=== PATIENT | female | born 1955 | race Caucasian/White ===

== ENCOUNTER 2018-10-30 09:29 | Day surgery (SDC) | payer BC ==
--- NOTE | 2018-10-30 06:59 | History and Physical - Ferro ---
CHIEF COMPLAINT/HISTORY OF CHIEF COMPLAINT: This patient presents with a history of an intractable post lumbar laminectomy radiculopathy. Due to the failure of all therapy, a spinal cord stimulator trial was conducted on with 75+% pain control. Due to the failure of therapy and the success of the trial, the patient presents for implantation of a permanent system. PAST MEDICAL HISTORY: Hypertension. PAST SURGICAL HISTORY: Lumbar spinal surgery, gallbladder, D&C, and foot surgery. MEDICATIONS ON ADMISSION: List to be provided. ALLERGIES: SULFA, PENICILLIN, AND LISINOPRIL. FAMILY/PSYCHOSOCIAL HISTORY: Social history - Smoker, social alcohol, and caffeine. Family history - Diabetes, hypertension, and cancer. SYSTEMS REVIEW: The patient is appropriate in no acute distress. The remainder of the systems review is positive for thyroid disease, cataracts, blood pressure , renal disease, and degenerative arthritis. PHYSICAL EXAMINATION: Height is 5'6", no weight. Vital signs are not available. HEENT: Within normal limits. LUNGS: Clear. HEART: Rapid and regular. ABDOMEN: Nontender. MUSCULOSKELETAL: Examination of the musculoskeletal system shows diffuse tenderness at the lumbar spine. Range of motion does produce pain throughout the low back and the adjacent laminectomy scar. A right lower extremity component across the front and back surface. There is motor and sensory abnormalities to the right lower extremity. Ambulation - No assistive device utilized. NEUROLOGIC: Cranial nerves are intact. IMPRESSION: POST LUMBAR LAMINECTOMY SYNDROME, ICD-10 CODE M96.1 WITH RADICULOPATHY, ICD-10 CODE M54.16 AND M54.17. PLAN: The patient is here for implantation of a permanent spinal cord stimulatory based upon a successful trial and the failure of therapy. The procedure will be considered outpatient although an overnight stay will be evaluated. JOB NUMBER: [id number] [facility]
[~2018-10-30 09:29] MED LIST: ACETAMINOPHEN 1,000 MG/100 ML BTL IV ONE; CLINDAMYCIN 600MG/50ML PREMIX 600 MG/50 ML BAG IVPB ONE; FAMOTIDINE 20MG TABLET PO ONE; MECLIZINE 25 MG TABLET PO ONE; METOCLOPRAMIDE 10 MG TABLET PO ONE
[2018-10-30] MEDS ORDERED: PROPOFOL 10 MG/ML VIAL IV ONE (09:30)
[2018-10-30] MEDS ORDERED: LIDOCAINE 2% MDV (20MG/ML) 20ML VIAL IV ONE (09:30)
[2018-10-30] MEDS ORDERED: BUPIVACAINE 0.5% W/EPI MPF 30 ML VIAL IVP ONE (09:30)
[2018-10-30] MEDS ORDERED: HYDROMORPHONE HCL 2 MG/ML VIAL IV ONE (09:30)
[2018-10-30] MEDS ORDERED: KETAMINE HCL 100MG/1ML VIAL INJ ONE (09:30)
[2018-10-30] MEDS ORDERED: FENTANYL PF 100MCG/2ML VIAL IV ONE (09:30)
[2018-10-30] MEDS ORDERED: LIDOCAINE 1% W/EPI 1:200,000 MPF 30ML SQ ONE (09:30)
[2018-10-30] MEDS ORDERED: Clindamycin 600mg vial 150 MG/ML VIAL IVPB ONE (09:30)
[2018-10-30] MEDS ORDERED: MIDAZOLAM HCL 2MG/2ML VIAL IV ONE (09:30)
--- NOTE | 2018-10-31 18:17 | Operative Note - Ferro ---
DATE OF SURGERY: 10/30/18 PREOPERATIVE DIAGNOSES: POST LUMBAR LAMINECTOMY SYNDROME, ICD-10 CODE = M96.1 WITH RADICULOPATHY, ICD- 10 CODE = M54.16 AND M54.17. OPERATION: 1. FLUOROSCOPICALLY-GUIDED EPIDURAL ACCESS T12/L1, PLACEMENT OF SPINAL CORD STIMULATOR LEAD 1, A [employer] 16 WITH 6 ELECTRODES POSITIONED LEFT T7. 2. 3. FLUOROSCOPICALLY-GUIDED EPIDURAL ACCESS LEFT T11/12, PLACEMENT OF SPINAL CORD STIMULATOR LEAD 2, A [employer] 16 WITH 6 ELECTRODES POSITIONED RIGHT T7. 3. COMPLEX PROGRAMMING LEAD 1 OVER 20 MINUTES FOLLOWED BY COMPLEX PROGRAMMING OF LEAD 2 OVER 20 MINUTES. 4. INCISION, SUBCUTANEOUS DISSECTION, AND ANCHORING OF LEAD 1 AND LEAD 2 TO SUPRASPINOUS FASCIA USING A [employer] LOCKING ANCHOR. 5. INCISION, SUBCUTANEOUS DISSECTION, AND CREATION OF SUBCUTANEOUS POUCH AT RIGHT POSTERIOR GLUTEAL MARGIN FOR PLACEMENT OF GENERATOR IDENTIFIED [employer] PROGRAMMABLE RECHARGEABLE WAVEWRITER. 6. TUNNELING LEAD POUCHES. PLACEMENT OF EXTERNAL PORTION LEAD 1 AND LEAD 2 INTO GENERATOR POUCH. EACH LEAD INTERFACED TO GENERATOR. 7. PLACEMENT OF GENERATOR INTO POUCH. PLACEMENT OF LEADS INTO POUCH. CLOSURE OF INCISIONS USING STRATAFIX SUTURE 2-0 FASCIA, 3-0 SKIN. DERMABOND CLOSURE. 8. COMPLEX RECOVERY ROOM PROGRAMMING INTERNAL GENERATOR HOME USE, TWO STIMULATORS, 20 MINUTES. SURGEON: FABY HERBERT D.O. ANESTHESIA: LOCAL SEDATION. ANESTHESIA PROVIDER: SHAYLA SANTOS CRNA. INDICATION: This patient with a history of intractable post lumbar laminectomy radiculopathy. Due to the failure of therapy, a trial spinal cord stimulation was conducted with 75 to 85% pain control. Due to the failure of the other therapies and the success of the trial, she presents for implantation of a permanent system by her choice. PROCEDURE: Intravenous line, vital sign monitoring, IV sedation. Prepped and draped sterile technique. The epidural interspace left of the midline at T12/L1 and 11/12 were marked and infiltrated. Using curved axis Epimed needles with [id number], the space was accessed. At 12/1, spinal cord stimulator lead 1, a [employer] Infinion 16 with 6 electrodes was positioned left at T7. With the epidural access at 11/12, spinal cord stimulator lead 2, also a [employer] Infinion 16 with 6 electrodes, positioned right at T7. Complex programming of lead 1 over 20 minutes followed by complex programming of lead 2 over 20 minutes resulted in complete patterns of stimulation across the back and into the legs; patient indicating we had all of the areas of the pain. She was given the option to implant, continue to program, or remove the system; she opted to implant. Questions were repeated with the same response. The skin above and below both needles was infiltrated, incision made, and subcutaneous dissection was conducted to the supraspinous fascia. The needles were removed then each lead was anchored to the supraspinous fascia with a [employer] and nonabsorbable suture. At the right posterior gluteal margin, a site picked by the patient for the generator, skin infiltrated, incision made, and subcutaneous dissection was conducted to form a pouch of suitable size and depth for the generator, a [employer] Wave[employer] Programmable Rechargeable. A tunneling tool was used to carry the leads into the generator pouch and then each lead was interfaced to the generator. Antibiotic irrigation and Bovie for hemostasis. The generator was placed into the pouch and then secured with nonabsorbable suture. The leads were placed into their own pouch then both incisions were closed using STRATAFIX suture 2-0 fascia, 3-0 skin. Dermabond closure. She was transported to the Recovery Room stable. No side-effects from the procedure or the sedation. When fully awake and alert, complex programming was performed re- establishing stimulation and pain control to all of the appropriate areas. The patient was instructed on the use of the system, provided with information, error messaging, and then prepared for discharge. DISCHARGE INSTRUCTIONS: 1. Sites remain clean and dry. No showering; except the Dermabond will allow showering, she should not sit in water. No bathing. 2. Standard medications resumed including the antibiotic she will take for 14 days; Levaquin 500 mg once a day for 14 days. 3. The office will contact the patient in the next 24-48 hours to set up an appointment in 7-10 days to evaluate the site. Until then, her activities should stay controlled; limit bend, lift, push, pull. All other instructions provided, numbers to contact, problems given. She was then discharged. cc: Dr. Brenda Flood JOB NUMBER: [id number] [facility]
--- NOTE | 2018-11-01 09:15 | RADIOLOGY REPORT ---
EXAM: THORACOLUMBAR AP SPINE HISTORY: POST SPINAL CORD STIMULATOR IMPLANT. TECHNIQUE: A single AP view of the spine from about the level of the T5 vertebra down into the upper sacrum was obtained. Comparison: None. FINDINGS: Battery pack right lower quadrant presumably corresponding to the spinal cord stimulator device with the associated electrode leads extending to the spine at the upper lumbar level and then ascending up to the approximate T7 level. Hypertrophic spurring in the spine. IMPRESSION: ELECTRODE LEADS EXTEND UP TO THE APPROXIMATE T7 LEVEL. JOB NUMBER: [id number] [facility]
== END 2018-10-30 13:35 | disposition home or self-care (01) ==
LOC: SUR 09:29
PROVIDERS: ATTEND Pain Medicine Interventional Pain Medicine
DX: M96.1 Postlaminectomy syndrome, not elsewhere classified (principal); M54.16 Radiculopathy, lumbar region; M54.17 Radiculopathy, lumbosacral region; I10 Essential (primary) hypertension; E11.9 Type 2 diabetes mellitus without complications; M10.9 Gout, unspecified
CPT/HCPCS: 63650; 63685; 01936; 95972; 36416; 82948; 72020; J3010; J1170; J3490; C1820; C1883

== ENCOUNTER 2019-04-30 08:54 | Day surgery (SDC) | payer BC ==
--- NOTE | 2019-04-30 06:53 | History and Physical - Ferro ---
CHIEF COMPLAINT/HISTORY OF CHIEF COMPLAINT: This patient presents with a history of a post lumbar laminectomy radiculopathy. Due to the failure of therapies including a spinal cord stimulator trial, this patient presents today for an implanted spinal catheter infusion trial with Hydromorphone to determine if a permanent system can be of any value in pain control. PAST MEDICAL HISTORY: Hypertension. PAST SURGICAL HISTORY: Lumbar spinal surgery, gallbladder surgery, foot surgery, and stimulator implant. MEDICATIONS ON ADMISSION: List to be provided. ALLERGIES: SULFA, PENICILLIN, LISINOPRIL, VICODIN, AND ADHESIVE TAPE. FAMILY/PSYCHOSOCIAL HISTORY: Social history - Smoker, social alcohol, and caffeine. Family history - Diabetes, hypertension, and cancer. SYSTEMS REVIEW: The patient is appropriate in no acute distress. The remainder of the systems review is positive for thyroid disease, cataracts, blood pressure, renal disease and degenerative arthritis. PHYSICAL EXAMINATION: Height is 5'6", weight is 200 pounds. No vital signs. HEENT: Within normal limits. LUNGS: Clear. HEART: Rapid and regular. ABDOMEN: Nontender. MUSCULOSKELETAL: Examination of the musculoskeletal system shows diffuse tenderness to the lumbar spine. Range of motion does produce pain throughout the low back and extending into the legs across the front and back surface. There are mild motor and sensory abnormalities across the anterior and lateral legs consistent with the L4-L5 pattern. Ambulation -No assistive device utilized. NEUROLOGIC: Cranial nerves are intact. IMPRESSION: POST LUMBAR LAMINECTOMY SYNDROME, ICD-10 CODE M96.1, WITH RADICULOPATHY, ICD-10 CODE M54.16 AND M54.17. PLAN: The patient is here for an implanted spinal catheter infusion trial with Hydromorphone to determine if the implantation of a permanent pump would be of any value in pain control. The procedure will involve a blood patch that will require four hours flat and one hour slowly elevated and recommended overnight stay will be made. Outpatient can be discussed. The potential risks, side effects and complications have all been reviewed and discussed. The ability to talk with a clinical specialist through [employer] has been provided. JOB NUMBER: [id number] [facility]
[~2019-04-30 08:54] MED LIST changes: -ACETAMINOPHEN 1,000 MG/100 ML BTL IV ONE; +ACETAMINOPHEN 1,000 MG/100 ML BTL IVPB ONE; +HYDROMORPHONE PF 2MG/ML AMP 0.008 MG in 0.9 % SODIUM CHLORIDE 10ML VIA 0.996 ML IV ONE; +HYDROMORPHONE PF 2MG/ML AMP 8 MG in 0.9 % SODIUM CHLORIDE 500ML 496 ML IV ONE
[2019-04-30] MEDS ORDERED: FENTANYL PF 100MCG/2ML VIAL IV ONE (08:55)
[2019-04-30] MEDS ORDERED: KETAMINE HCL 100MG/1ML VIAL INJ ONE (08:55)
[2019-04-30] MEDS ORDERED: PROPOFOL 10 MG/ML VIAL IV ONE (08:55)
[2019-04-30] MEDS ORDERED: Clindamycin 600mg vial 150 MG/ML VIAL IVPB ONE (08:55)
[2019-04-30] MEDS ORDERED: MIDAZOLAM HCL 2MG/2ML VIAL IV ONE (08:55)
[2019-04-30] MEDS ORDERED: GLYCOPYRROLATE 0.2 MG/ML ML IV ONE (08:55)
[2019-04-30] MEDS ORDERED: LIDOCAINE 2% MDV (20MG/ML) 20ML VIAL IV ONE (08:55)
[2019-04-30] MEDS ORDERED: 0.9 % SODIUM CHLORIDE 1000ML 1,000 ML IV ONE ×2 (09:40→12:30)
[2019-04-30] MEDS ORDERED: BUPIVACAINE 0.5% W/EPI MPF 30 ML VIAL SQ ONE ×2 (12:30)
[2019-04-30] MEDS ORDERED: LIDOCAINE 1% W/EPI 1:100,000 MDV 20 ML VIAL SQ ONE ×2 (12:30)
[2019-04-30] MEDS ORDERED: CAFFEINE/SODIUM BENZOATE 250MG 500 MG in 0.9 % SODIUM CHLORIDE 100ML 100 ML IVPB ONE (13:29)
[2019-04-30] MEDS ORDERED: HYDROCODONE/APAP 7.5/325MG TABLET PO PRN ×2 (13:45)
[2019-04-30] MEDS ORDERED: OXYCODONE/APAP 10MG-325MG TABLET PO PRN ×2 (13:45)
--- NOTE | 2019-05-01 11:11 | Operative Note ---
DATE OF SURGERY: 04/30/2019 PREOPERATIVE DIAGNOSIS: Post lumbar laminectomy syndrome ICD-10 code M96.1 with radiculopathy. ICD-10 code M54.16 and M54.17. OPERATION: 1. Fluoroscopic-guided placement of spinal catheter at L4-5, using AP and lateral imaging. No CSF. 2. Fluoroscopic-guided placement of 20 gauge spinal into spinal space at L5-S1. No CSF. 3. Cancel surgery. SURGEON: Raghav Redding D.O. PRIMARY: Toma Velasco ANESTHESIA: Local sedation. ANESTHESIA PROVIDER: REINA. INDICATION: This patient with a history of post laminectomy radiculopathy is presenting today for an implanted spinal catheter infusion trial with hydromorphone to determine the implantation for permanent system would be of any value in pain control. PROCEDURE: Intravenous line, vital sign monitoring, IV sedation, prepped and draped in sterile technique. The patient positioned on the table prone. Sterile prep, sterile technique. Under imaging L2-3 decompression laminectomy, L4-L5 laminectomy visualized. The spinal space could be easily visualized at 4- 5 and 5-1. The skin infiltrated at 4-5. A 20 gauge spinal needle with a paramedian approach, level with the long axis inserted into the spinal space using AP and lateral imaging. The needle was advanced in the space. A pop or sensation consistent with penetration of the dura noted. No CSF identified. The needle retracted and removed. At 5-S1 the skin infiltrated. A 20 gauge spinal needle inserted using a paramedian approach, level with the long axis into the space, a palpable pop indicating dural penetration noted. AP lateral imaging, lateral image needle into the space, no CSF. The needle removed. Moving back to the L4-5 level, opposite approach paramedian, same technique, level with the long axis using AP and lateral imaging into the spinal space. A slow flow of fluid identified, mix of blood felt to be CSF, although low pressure. Through the needle spinal catheter AP and lateral showing this advanced position T12. The needle removed. The catheter anchored to the supraspinous fascia with anchoring device and nonabsorbable suture. No CSF noted through the catheter. A 25 gauge 5 inch needle was inserted in the end of the catheter. Gentle aspiration was performed, no CSF flow. After letting the catheter sit on the field, there was a very small amount of fluid that seemed to be coming from the catheter, felt to be CSF. 0.5 mL of contrast was injected under imaging. Catheter was noted in the anterior aspect of the spinal space, against the vertebral body. A small linear flow of contrast was noted far into the anterior part of the space. There was no pain response on the part of the patient. The study was felt to be abnormal. No response, no pain. The patient was awakened, did not indicate anything abnormal, no unusual painful function of all extremities, despite that and with the lack of appreciable CSF flow and a mixed contrast study of 0.5 mL, the catheter was removed and the procedure was aborted. The incision was closed using Stratafix suture 2-0 fascia, 3-0 skin, Dermabond closure. Since there was no appreciable CSF penetration or loss, it was felt that a blood patch was not necessary. She will be discharged to home. We will get a CT study to evaluate the spinal space and re-evaluate second approach. It was felt during the procedure not going into the area of the decompression laminectomy was appropriate to avoid scarring and certainly not going above the L3 or L2 level was appropriate in order to avoid the spinal cord. In the sake of safety, the procedure was canceled. We will re-evaluate. DISCHARGE INSTRUCTIONS: 1. The incision will remain clean and dry. The Dermabond will allow showering. 2. She will take antibiotic, Levaquin 500 mg once a day x14 days. 3. We will order a CT study to evaluate the spine and to determine our next approach. CC: Toma HAGER
== END 2019-04-30 15:30 | disposition home or self-care (01) ==
LOC: SUR 08:54 → MEDSURG 14:07 → SUR 15:30
PROVIDERS: ATTEND Pain Medicine Interventional Pain Medicine
DX: M96.1 Postlaminectomy syndrome, not elsewhere classified (principal); M54.16 Radiculopathy, lumbar region; M54.17 Radiculopathy, lumbosacral region
CPT/HCPCS: J1170; J3490; J7030; J7040

== ENCOUNTER 2019-05-07 07:42 | Day surgery (SDC) | payer BC ==
--- NOTE | 2019-05-07 06:50 | History and Physical - Ferro ---
CHIEF COMPLAINT/HISTORY OF CHIEF COMPLAINT: This patient presents with a history of multiple lumbar laminectomies with radiculopathy. Due to the failure of therapy on 10/30/18 a spinal cord stimulator was implanted following a successful trial. Although initially helpful this system became ineffective. On 04/30/19 an implanted catheter trial with Hydromorphone was attempted, but was unsuccessful because of a dry spinal tap. She was sent for CT study and evaluation through radiology and in comparison with the previous MRI it was evaluated with respect to different anatomy for reattempted trial for which she presents today. PAST MEDICAL HISTORY: Hypertension. PAST SURGICAL HISTORY: Lumbar spinal surgery, gallbladder surgery, and foot surgery. MEDICATIONS ON ADMISSION: List to be provided. ALLERGIES: SULFA, PENICILLIN, LISINOPRIL, VICODIN, AND ADHESIVES. FAMILY/PSYCHOSOCIAL HISTORY: Family history - Diabetes, hypertension and cancer. Social history - Smoker, social alcohol, and caffeine. SYSTEMS REVIEW: The patient is appropriate in no acute distress. The remainder of the systems review is positive for thyroid disease, cataracts, blood pressure problems, renal disease, and degenerative arthritis. PHYSICAL EXAMINATION: Height is 5'6", weight is 200 pounds. No vital signs. HEENT: Within normal limits. LUNGS: Clear. HEART: Rapid and regular. ABDOMEN: Nontender. MUSCULOSKELETAL: Examination of the musculoskeletal system shows an incisional site from the previous aborted spinal catheter trial within the mid lumbar. Primary pain pattern across the back and into the legs is somewhat more right than left. Mild motor and mild sensory loss to the right. NEUROLOGIC: Cranial nerves are intact. IMPRESSION: POST LUMBAR LAMINECTOMY SYNDROME, ICD-10 CODE M96.1 WITH RADICULOPATHY, ICD-10 CODE M54.16 AND M54.17. PLAN: This patient is here for a second or reattempt at an implanted catheter spinal infusion trial of Hydromorphone. This has been carefully reviewed and discussed with the patient and and inf fact since the failed trial the patient has been pushing for a second repeated trial. She was sent to radiology, a CT study with contrast was performed, this was compared with the previous MRI approximately one year old. The anatomy was reviewed and discussed, direct contact with radiology was also made and discussed. In the conversation after the review it was felt that there may have been several factors involved in the dry tap including dehydration. The patient was suggested to increase hydration until the time of today's surgery. Along with that in the review of the anatomy it was felt that an alternate approach was possible and planned. She is here for a second implanted catheter trial attempt. The potential risks, side effects and complications including nerve root injury, spinal cord injury, and spinal headache have all been discussed and reviewed. The patient and also understand that for whatever reason if this is not conducted smoothly then the procedure will be cancelled. Should the catheter be successfully implanted an epidural blood patchy will more than likely not be possible. An intravenous caffeine solution will be performed, she will be kept flat for four and then slowly elevated for one, but be kept overnight for observation. The potential risks, side effects and complications as per above were carefully reviewed and discussed, the patient and her want to move forward. JOB NUMBER: [id number] [facility]
[2019-05-07] MEDS ORDERED: PROPOFOL 10 MG/ML VIAL IV ONE (07:43)
[2019-05-07] MEDS ORDERED: LIDOCAINE 2% MDV (20MG/ML) 20ML VIAL IV ONE (07:43)
[2019-05-07] MEDS ORDERED: MIDAZOLAM HCL 2MG/2ML VIAL IV ONE (07:43)
[2019-05-07] MEDS ORDERED: GLYCOPYRROLATE 0.2 MG/ML ML IV ONE (07:43)
[2019-05-07] MEDS ORDERED: FENTANYL PF 100MCG/2ML VIAL IV ONE (07:43)
[2019-05-07] MEDS ORDERED: ONDANSETRON HCL IV 4 MG/2 ML VIAL IVP ONE (07:43)
[2019-05-07] MEDS ORDERED: KETAMINE HCL 100MG/1ML VIAL INJ ONE (07:43)
[2019-05-07] MEDS ORDERED: RINGERS SOLUTION,LACTATED 1,000 ML IV ONE ×2 (09:19→09:50)
[2019-05-07] MEDS ORDERED: LIDOCAINE 1% W/EPI 1:100,000 MDV 20 ML VIAL SQ ONE ×2 (09:34)
[2019-05-07] MEDS ORDERED: BUPIVACAINE 0.5% W/EPI MPF 30 ML VIAL SQ ONE ×2 (09:34)
[2019-05-07] MEDS ORDERED: METOCLOPRAMIDE 10 MG TABLET PO PRN (11:15)
[2019-05-07] MEDS ORDERED: HYDROMORPHONE HCL 2 MG/ML VIAL IM PRN ×2 (11:15)
[2019-05-07] MEDS ORDERED: NALOXONE 0.4 MG/1 ML VIAL IVP PRN (11:15)
[2019-05-07] MEDS ORDERED: DIPHENHYDRAMINE HCL 25 MG CAPSULE PO PRN ×2 (11:15)
[2019-05-07] MEDS ORDERED: OXYCODONE/APAP 10MG-325MG TABLET PO PRN (11:15)
[2019-05-07] MEDS ORDERED: RINGERS SOLUTION,LACTATED 1,000 ML IV SCH (11:15)
[2019-05-07] MEDS ORDERED: TEMAZEPAM 15 MG CAPSULE PO PRN ×2 (11:15)
[2019-05-07] MEDS ORDERED: ACETAMINOPHEN 325 MG TAB PO PRN ×2 (11:15)
[2019-05-07] MEDS ORDERED: DIPHENHYDRAMINE HCL 50 MG/ML VIAL IVP PRN (11:15)
[2019-05-07] MEDS ORDERED: METOCLOPRAMIDE HCL 10 MG/2 ML VIAL IVP PRN (11:15)
[2019-05-07] MEDS ORDERED: SENNOSIDES/DOCUSATE SODIUM UD CAPSULE PO PRN ×2 (11:15)
[2019-05-07] MEDS ORDERED: AL HYDROX/MAG HYDROX 30ML UD PO PRN (11:15)
[2019-05-07] MEDS: OXYCODONE/APAP 10MG-325MG TABLET PO PRN (19:45)
[2019-05-07] MEDS: CLINDAMYCIN 600MG/50ML PREMIX 600 MG/50 ML BAG IVPB SCH (19:47)
[2019-05-08] MEDS: CLINDAMYCIN 600MG/50ML PREMIX 600 MG/50 ML BAG IVPB SCH ×2 (00:01→08:08)
[2019-05-08] MEDS: OXYCODONE/APAP 10MG-325MG TABLET PO PRN ×2 (00:03→09:38)
[2019-05-08] MEDS: DIPHENHYDRAMINE HCL 50 MG/ML VIAL IVP PRN ×2 (00:05→04:05)
--- NOTE | 2019-05-08 14:49 | RADIOLOGY REPORT ---
EXAM: THORACOLUMBAR SPINE, SINGLE VIEW HISTORY: POST PAIN PUMP TRIAL. TECHNIQUE: A single AP view of the thoracolumbar spine was obtained. Comparison: Single view of the thoracolumbar spine 10/30/18. FINDINGS: The previously seen battery pack overlying the right lower quadrant presumably associated with a spinal cord stimulator device is again seen and the two electrodes are again seen to extend up to the approximate T7 level. By history there is now a pain pump placement. An additional battery pack is not identified on the film today. There does appear to be some additional catheter on today's image compared to the prior study with this catheter seen looping overlying the right upper quadrant and the lower thoracic/upper lumbar spine. There is a tiny metallic dot like density over the T12 vertebra which could be related to a pain pump device although clinical correlation is suggested. Slight increased density overlying the L2 and l4 vertebra in particular compared to the prior study, it could represent some contrast media in the spinal canal and again correlation with the current procedure is suggested. Lumbar curve to the right with hypertrophic spurring particularly along the left side of the lumbar spine at the L2-l3 level. IMPRESSION: 1. APPARENT SPINAL STIMULATOR DEVICE IN PLACE WITH ELECTRODES AGAIN EXTENDING UP TO THE T7 LEVEL. 2. NEW CATHETER OVERLYING THE IMAGE WITH POSSIBLY A PAIN PUMP CATHETER MARKER OVERLYING THE T12 VERTEBRA. CORRELATION WITH THE PROCEDURE IS SUGGESTED. 3. INCREASED DENSITY OVERLYING PORTIONS OF THE LUMBAR SPINE MAY REPRESENT CONTRAST MEDIA IN THE SPINAL CANAL. AGAIN RECOMMEND CORRELATION WITH THE PROCEDURE ITSELF. 4. DEGENERATIVE CHANGE IN THE LUMBAR SPINE WITH A LUMBAR CURVE TO THE RIGHT. [facility]: [id number] [facility]
--- NOTE | 2019-05-13 20:34 | Operative Note ---
DATE: 05/07/19. PREOPERATIVE DIAGNOSIS: 1. POSTLUMBAR LAMINECTOMY SYNDROME, ICD-10 CODE M96.1. 2. RADICULOPATHY, ICD-10 CODE M54.16 AND M54.17. POSTOPERATIVE DIAGNOSIS: 1. POSTLUMBAR LAMINECTOMY LAMINECTOMY SYNDROME, ICD-10 CODE M96.1. 2. RADICULOPATHY, ICD-10 CODE M54.16 AND M54.17. PROCEDURES: 1. Fluoroscopically guided spinal access at L3-4. Placement of thin-walled spinal catheter at T12. 2. Diagnostic myelography with radiologic supervision and interpretation. 3. Spinal opioid bolus of hydromorphone 0.004 mg into the spinal space. 4. Incision, subcutaneous dissection, and anchoring of spinal catheter to supraspinous fascia with anchoring device and nonabsorbable suture. 5. Incision, subcutaneous dissection, and creation of subcutaneous pouch at the right posterior gluteal margin, medial to the stimulator, spinal cord, generator. 6. Tunneling between the midline incision and the posterior pouch extending spinal catheter to the pouch. Interface spinal catheter with second catheter component by way of connector. 7. Tunneling secondary catheter component 6.0 cm superior exiting the skin. Interface external catheter to pump set to deliver hydromorphone at 0.08 mg per day. 8. Epidural blood patch at L4-5 with 20 mL autologous blood drawn with sterile technique, left antecubital. 9. Placement of dressings securing catheter and all connections under sterile dressing. 10. Patient transported to the recovery room stable and flat with a pillow under the head and knees. No unusual pain patterns and full functionality of the extremities. SURGEON: Raghav Redding D.O. ANESTHESIA: Local sedation. ANESTHESIA PROVIDER: Yessenia Hernandez CRNA. INDICATIONS: This patient presents with a history of intractable postlumbar laminectomy radiculopathy. Previously an implanted spinal catheter trial was unsuccessful because of what was identified as a dry spinal tap. During the interval period of time, the patient was sent for a CT study with contrast. With the CT study as well as previous MRI, and after a lengthy discussion with Radiology regarding the imaging and the reports, a strategy was developed and employed today. DESCRIPTION OF PROCEDURE: Intravenous lines, vital sign monitoring, and intravenous sedation. Prepped and draped with sterile technique with the patient was positioned prone. Under imaging, on the AP view, the lumbar vertebrae were identified starting from T12. A total of six lumbar vertebrae were identified. Under imaging and consistent with the MRI and CT study, the vertebral body at L3 was marked. The skin was infiltrated. A 22-gauge spinal needle was inserted to the remaining lamina within the area of the decompression laminectomy. On the lateral image, the needle was confirmed to be on the lamina at L3. Returning back to an AP image, the skin was infiltrated. A 20-gauge spinal needle, through a paramedian approach, beveled with the long access, was inserted with the access point of the needle in the spinal space slightly medial to the needle which had been placed as a marker. The needle was slowly advanced on lateral imaging until it entered the spinal space. The stilette was removed. A small blush of cerebrospinal fluid was noted. A spinal catheter was advanced under imaging and positioned at T12. The stilette was removed from the catheter and cerebrospinal fluid flow noted, confirming catheter position. The catheter was clamped to stop cerebrospinal fluid leak. The skin above and below the needle was infiltrated. Incision was made and subcutaneous dissection was conducted to the supraspinous fascia. The needle was removed, and then the catheter was anchored to the supraspinous fascia with an anchoring device and nonabsorbable suture. At the right posterior gluteal margin, which was the site picked by the patient for eventual placement of the pumps, a site slightly medial to the stimulator generator, the skin was infiltrated and an incision was made. Subcutaneous dissection was conducted to form a small subcutaneous pouch. The generator eventually would be removed with the pump implant. With a small subcutaneous pouch formed, the midline spinal catheter was then tunneled into this pouch. The catheter was then interfaced by way of a connector to a second catheter component. The second catheter component was then tunneled 6.0 cm superior to the site exiting the skin. The external catheter was interfaced with an external pump which was set to deliver hydromorphone at 0.08 mg a day. Antibiotic irrigation and Bovie for hemostasis. The midline incision was then closed using Vicryl for the fascia and a running nylon for the skin. The right posterior pouch was then closed with running nylon. The pump was interfaced to an infusion which was set to deliver hydromorphone at 0.08 mg a day. At L4-5, which was one level below the dural puncture, the skin was infiltrated. An 18-gauge Tuohy needle was placed with loss of resistance under imaging into the epidural space successfully. Simultaneously, 20 mL of autologous blood was drawn using sterile technique from the left antecubital area. This blood was placed onto the field, and an epidural blood patch was performed at this level with this blood. The needle was removed. Dressing was then placed securing catheter and all connections under sterile dressing and also to contain the incisional sites. The patient was transported to the recovery room stable and flat with a pillow under the head and knees. She had no side effects or complications. No unusual pain pattern. She was fully awake and alert. She will be kept flat for four hours and then slowly elevated for one hour. She will kept overnight for observation and will be discharged in the morning. DISCHARGE INSTRUCTIONS: 1. The sites to remain clean and dry. No showering or bathing in any way that would disrupt the dressings. 2. Standard medications to be resumed including the antibiotic Levaquin 500 mg once a day for 14 days. 3. The office is to contact the patient. We will set up three increases in the next 14-day trial period. Her first increase will be within the next three days. 4. All other instructions were provided including numbers to contact with problems. 5. The potential spinal opioid side effects including respiratory depression, nausea, vomiting, constipation, urinary retention, lightheadedness, and rash have all been discussed and reviewed. 6. She will be discharged. JOB NUMBER: [id number] cc: Patricia Hager
== END 2019-05-08 10:00 | disposition home or self-care (01) ==
LOC: SUR 07:42 → MEDSURG 11:10 → SUR 05-08 10:00
PROVIDERS: ATTEND Pain Medicine Interventional Pain Medicine
DX: M96.1 Postlaminectomy syndrome, not elsewhere classified (principal); M54.16 Radiculopathy, lumbar region; M54.17 Radiculopathy, lumbosacral region; I10 Essential (primary) hypertension; E11.9 Type 2 diabetes mellitus without complications; M10.9 Gout, unspecified; F17.210 Nicotine dependence, cigarettes, uncomplicated
CPT/HCPCS: 72020; J1170; J1200; J2405; J3490; J7040; J7120

== ENCOUNTER 2019-05-21 11:25 | Day surgery (SDC) | payer BC ==
--- NOTE | 2019-05-21 06:27 | History and Physical Report ---
DATE: 05/21/2019. CHIEF COMPLAINT AND HISTORY OF CHIEF COMPLAINT: This patient presents with a history of an intractable post lumbar laminectomy syndrome. Due to the failure of therapy, an implanted spinal infusion trial with hydromorphone has been ongoing with greater than 75 percent pain control. Due to the failure of therapy and the success of the trial, the patient presents today for implantation of a permanent system. PAST MEDICAL HISTORY: Unchanged. PAST SURGICAL HISTORY: Unchanged. MEDICATIONS ON ADMISSION: Unchanged. ALLERGIES: Unchanged. SOCIAL HISTORY: Unchanged. FAMILY HISTORY: Unchanged. REVIEW OF SYSTEMS: The patient is appropriate and in no acute distress. The remainder of the systems review is unchanged. PHYSICAL EXAMINATION: General: Height and weight unavailable. Vital Signs: Not available. HEENT: Within normal limits. Lungs: Clear. Heart: Rapid and regular. Abdomen: Nontender. Musculoskeletal: Examination of the musculoskeletal system shows the implanted catheter trial dressings to be intact. The external pump and spinal catheter are in place and are functioning properly. Bilateral lower extremity underlying pain pattern evaluated. Neurologic: Cranial nerves are intact. IMPRESSION: 1. POSTLUMBAR LAMINECTOMY SYNDROME, ICD-10 CODE M96.1. 2. RADICULOPATHY, ICD-10 CODE M54.16 AND M54.17. 3. IMPLANTED SPINAL CATHETER INFUSION TRIAL WITH HYDROMORPHONE. PLAN: Due to the successful trial, the patient is here for implantation of a permanent system. She also has a generator at the right posterior gluteal margin and a spinal cord stimulator which had been placed previously which are essentially nonfunctional. We will be implanting a catheter as well as removing the stimulator and placing the pump in the stimulator pouch at the right posterior gluteal margin. The procedure will be considered outpatient, although an overnight stay will be recommended because of the extent of the surgery. The potential risks, side effects, and complications have all been reviewed and discussed. JOB NUMBER: [id number] cc: Patricia Hager
[~2019-05-21 11:25] MED LIST changes: +HYDROMORPHONE HCL 0.06 GM in 0.9 % SODIUM CHLORIDE 10ML VIA 20 ML IV ONE; -HYDROMORPHONE PF 2MG/ML AMP 8 MG in 0.9 % SODIUM CHLORIDE 500ML 496 ML IV ONE
[2019-05-21] MEDS ORDERED: KETAMINE HCL 100MG/1ML VIAL INJ ONE (11:26)
[2019-05-21] MEDS ORDERED: PROPOFOL 10 MG/ML VIAL IV ONE (11:26)
[2019-05-21] MEDS ORDERED: FENTANYL PF 100MCG/2ML VIAL IV ONE (11:26)
[2019-05-21] MEDS ORDERED: MIDAZOLAM HCL 2MG/2ML VIAL IV ONE (11:26)
[2019-05-21] MEDS ORDERED: RINGERS SOLUTION,LACTATED 1,000 ML IV ONE ×2 (11:52→15:48)
[2019-05-21] MEDS ORDERED: LIDOCAINE 1% W/EPI 1:200,000 MPF 30ML SQ ONE ×2 (14:22)
[2019-05-21] MEDS ORDERED: BUPIVACAINE 0.5% W/EPI MPF 30 ML VIAL SQ ONE ×2 (14:22)
[2019-05-21] MEDS ORDERED: FENTANYL PF 100MCG/2ML VIAL IVP ONE (15:42)
[2019-05-21] MEDS ORDERED: OXYCODONE/APAP 10MG-325MG TABLET PO ONE (16:03)
[2019-05-21] MEDS ORDERED: AL HYDROX/MAG HYDROX 30ML UD PO PRN (16:30)
[2019-05-21] MEDS ORDERED: ACETAMINOPHEN 325 MG TAB PO PRN ×2 (16:30)
[2019-05-21] MEDS ORDERED: TEMAZEPAM 15 MG CAPSULE PO PRN ×2 (16:30)
[2019-05-21] MEDS ORDERED: METOCLOPRAMIDE 10 MG TABLET PO PRN (16:30)
[2019-05-21] MEDS ORDERED: HYDROCODONE/APAP 7.5/325MG TABLET PO PRN ×2 (16:30)
[2019-05-21] MEDS ORDERED: DIPHENHYDRAMINE HCL 50 MG/ML VIAL IVP PRN ×2 (16:30)
[2019-05-21] MEDS ORDERED: DIPHENHYDRAMINE HCL 25 MG CAPSULE PO PRN (16:30)
[2019-05-21] MEDS ORDERED: OXYCODONE/APAP 10MG-325MG TABLET PO PRN (16:30)
[2019-05-21] MEDS ORDERED: HYDROMORPHONE HCL 2 MG/ML VIAL IM PRN ×2 (16:30)
[2019-05-21] MEDS ORDERED: SENNOSIDES/DOCUSATE SODIUM UD CAPSULE PO PRN ×2 (16:30)
[2019-05-21] MEDS ORDERED: METOCLOPRAMIDE HCL 10 MG/2 ML VIAL IVP PRN (16:30)
[2019-05-21] MEDS: OXYCODONE/APAP 10MG-325MG TABLET PO PRN (21:15)
[2019-05-21] MEDS: DIPHENHYDRAMINE HCL 25 MG CAPSULE PO PRN (21:16)
[2019-05-21] MEDS: CLINDAMYCIN 600MG/50ML PREMIX 600 MG/50 ML BAG IVPB SCH (21:58)
[2019-05-21] MEDS ORDERED: GLIPIZIDE 10 MG PO SCH (22:00)
[2019-05-21] MEDS ORDERED: PATIENT OWN MED: ALLOPURINOL 300 MG PO SCH (22:00)
[2019-05-21] MEDS ORDERED: PATIENT OWN MED: LOSARTAN 25 MG PO SCH (22:00)
[2019-05-21] MEDS ORDERED: PATIENT OWN MED: LEVOTHYROXINE 100 MCG PO SCH (22:00)
[2019-05-21] MEDS ORDERED: JANUVIA 100 MG PO SCH (22:00)
[2019-05-21] MEDS ORDERED: PATIENT OWN MED: METFORMIN 500 MG PO SCH (22:00)
[2019-05-22] MEDS: OXYCODONE/APAP 10MG-325MG TABLET PO PRN ×3 (00:33→07:55)
[2019-05-22] MEDS: DIPHENHYDRAMINE HCL 25 MG CAPSULE PO PRN (00:33)
[2019-05-22] MEDS: CLINDAMYCIN 600MG/50ML PREMIX 600 MG/50 ML BAG IVPB SCH (06:18)
--- NOTE | 2019-05-23 09:30 | Operative Note ---
DATE OF SURGERY: 05/21/2019 PREOPERATIVE DIAGNOSES: 1. Post lumbar laminectomy syndrome, ICD10 code M96.1. Radiculopathy, ICD10 code M54.16 and M54.17. 2. Nonfunctional 2-lead implanted spinal cord stimulator with internal generator. 3. Implanted spinal catheter infusion trial of hydromorphone. OPERATION: 1. Incision and subcutaneous dissection and removal of 2 implanted spinal cord stimulator leads and internal generator right posterior gluteal margin. 2. Incision and subcutaneous dissection and formation of subcutaneous pouch at right posterior gluteal margin revising previous pouch to accommodate pump, Medtronic programmable 20 mL. 3. Placement of pump 20 mL programmable Medtronic prefilled hydromorphone 10 mg/mL onto field. 4. Revise and resect internal spinal catheter with removal of external catheter by pulling away from incision after formation of subcutaneous incision right posterior gluteal margin for placement of pump. 5. Revised spinal catheter with separate connector and second catheter component and interface to pump. 6. Interface revised catheter to pump, placement of pump into pouch securing to posterior fascia with nonabsorbable suture at 3 points pump eyelets. 7. Curved 24-gauge Delgado needle inserted into access port programmable pump in pouch aspirating 1 mL catheter contents. 8. Diagnostic myelography with radiologic supervision and interpretation using access port confirming the functionality of system, catheter position, tip of catheter T12-L1. 9. Closure of pump incision using Stratafix suture 2-0 fascia, 3-0 skin. Closure of incision for removal of spinal cord stimulator using 2-0 Stratafix suture, 3- 0 skin Stratafix. Placement of Dermabond dressing over all incisions. 10. Programming of pump to deliver by continuous infusion of hydromorphone at 0.6 mg a day. SURGEON: Raghav Redding DO ANESTHESIA: Local with sedation. ANESTHESIA PROVIDER: Farhan Youngblood CRNA INDICATION: This patient presents with a history of post lumbar laminectomy syndrome with an intractable lumbar radiculopathy. A number of months previously, a 2-lead spinal cord stimulator internal generator was placed with generator at the posterior gluteal margin right. System has failed. The patient has requested removal. Ongoing was an implanted spinal catheter infusion trial with hydromorphone with 75% to 85% pain control. With the success of the implanted catheter trial, she is requesting removal of stimulator and generator and placement of pump and positioning the pump in the generator pouch on the right posterior gluteal margin. PROCEDURE: Intravenous line, vital signs monitoring, IV sedation. Prepped and draped in sterile technique. Patient positioned prone. Sterile prep, sterile technique. The midline incision at T12-S1 for the stimulator was infiltrated with local. Incision made and subcutaneous dissection was conducted to the anchors for the 2 stimulator leads. The anchor and suture were removed and each of the 2 16-electrode leads was removed intact. At the right posterior gluteal margin generator pouch, skin infiltrated, incision made, and subcutaneous dissection was conducted to the generator. The generator was exteriorized and then removed along with its connection to the leads. The implanted catheter trial incision of running nylon was noted, then running nylon removed. A right posterior gluteal margin pouch for the internal catheter/external catheter interface was infiltrated, an incision made, and subcutaneous dissection was conducted to the indwelling catheter. The catheter was clamped, cut, and the external catheter was removed by pulling away from the incision. This incisional pouch for the catheter was extended to the right to the generator for the stimulator pouch. Revising and extending the pouch to accommodate the pump. Antibiotic irrigation and Bovie for hemostasis at all sites. The pump pouch site now enlarged to accommodate the pump for appropriate sizing. A 20 mL Medtronic pump prefilled hydromorphone at 10 mg/mL was placed onto the field. The indwelling spinal catheter which had been cut to remove the external catheter was then revised and resected by way of a connector with a second catheter component. The second catheter component was then interfaced to the 20 mL pump placed onto the field. Antibiotic irrigation and Bovie for hemostasis at all sites. The pump was then placed into the formed pouch and secured to the posterior fascial with nonabsorbable suture at 3 points pump eyelets. A 24-gauge Delgado needle was inserted into the access port, 1 mL catheter contents was aspirated clearing the catheter of opioid and CSF mixture. Diagnostic myelogram was then performed under radiologic supervision and interpretation confirming appropriate flow characteristics and the tip of the catheter at T12-L1. With this confirmation, the incision at the pump pouch was closed using Stratafix suture 2-0 fascia, 3-0 skin. The midline incision for the removal of the 2 stimulators was then closed with 2-0 Stratafix, 3-0 Stratafix skin. The left flank pouch was closed with a running nylon. The midline pouch was closed using Vicryl for fascia and a running nylon for skin. The epidural interspace at L4-5 one level below dural puncture adolfo infiltrated with an 18- gauge Tuohy needle with loss of resistance was used to gain entry to the space. Simultaneously, 20 mL. A Dermabond closure was placed over all incisions. The pump was then programmed to deliver by continuous infusion hydromorphone at 0.6 mg a day. She was transported to the recovery room stable. No side effects from the procedure or sedation. She was monitored until stable and then prepared for discharge. DISCHARGE INSTRUCTIONS: 1. Sites will remain clean and dry. No showering or bathing for 24 hours. She can then shower with the Stratafix in place. Do not remove the Stratafix for any reason. Should it come off, she should contact the clinic. CC: DO MADAN Valentino
== END 2019-05-22 09:35 | disposition home or self-care (01) ==
LOC: SUR 11:25 → MEDSURG 16:28 → SUR 05-22 09:35
PROVIDERS: ATTEND Pain Medicine Interventional Pain Medicine
DX: M54.16 Radiculopathy, lumbar region (principal); M54.17 Radiculopathy, lumbosacral region
CPT/HCPCS: 63661; 63688; 62350; 62362; 01936; 62367; 36416; 82948; Q9967; J3010; J3490; C1755; C1776; J7120